=== PATIENT | female | born 1960 | race African-American/Black ===

== ENCOUNTER 2016-03-21 18:56 | Observation (INO) | payer OTHER ==
[2016-03-21] MEDS ORDERED: ASPIRIN PO STA (19:12)
--- NOTE | 2016-03-21 19:20 | ED EKG INTERP ---
EKG Interpretation - EKG Time of EKG reading by physician:: 19:04 EKG Read and Signed by:: Rohit aGrcia EKG Interpretation (*Must complete 3 of following elements*): Normal Rate: 67 Rhythm: Normal sinus rhythm Attestation - Scribe Verification/Attestation Scribe:: Zach Dumont Acting as Scribe for:: Rohit Garcia Scribe documention review:: This chart was documented by a scribe and accurately reflects the service the provider performed and the decisions made by the provider.
[2016-03-21 19:30] LABS: MANUAL DIFF NEEDED? NO
[2016-03-21 19:33] LABS: BASO% 0.2 % (0.0-0.8); EOS# 0.39 X1000 (0.0-0.7); HEMOGLOBIN 11.5 g/dL (12.0-16.0); IMM GRAN# 0.04 X1000 (0.0-0.04); IMM GRAN% 0.3 % (0.0-0.5); LYMPH# 1.88 X1000 (1.2-3.4); LYMPH% 14.4 % (20.5-51.1); MCH 30.3 PG (27-31); MCHC 31.9 g/dL (33-37); MONO# 0.83 X1000 (0.11-0.59); MONO% 6.4 % (1.7-9.3); MPV 11.4 FL (7.4-10.4); NEUT% 75.7 % (42.2-75.2); PLT 335 X1000 (130-400); RBC 3.79 XMIL (4.2-5.4)
[2016-03-21 19:43] LABS: INR 1.03; PROTIME 10.9 Seconds (9.2-11.7); PTT 25.4 Seconds (22.0-36.0)
[2016-03-21 20:16] LABS: ALBUMIN 3.8 g/dL (3.5-5.0); CALCIUM 9.1 mg/dL (8.8-10.2); MAGNESIUM 2.2 mg/dL (1.5-2.7); POTASSIUM 4.4 mmol/L (3.5-5.1); TOTAL BILIRUBIN 0.46 mg/dL (0.20-1.00); TOTAL PROTEIN 7.4 g/dL (6.3-8.3)
[2016-03-21 20:36] LABS: CK INDEX 1.1 (0.0-2.5); CK-MB 2.01 ng/mL (0.0-5.0)
[2016-03-21] MEDS ORDERED: LOVENOX SUBQ ONE (20:56)
--- NOTE | 2016-03-21 21:04 | PROVIDER DOCUMENTATION ---
HPI-Chest Pain - General Source: patient - History of Present Illness-CP Location: reports: substernal Chest Pain Radiation: reports: no radiation Quality of Pain: reports: sharp, stabbing Severity in ED: mild Onset/Duration: 24 hours ago Timing: still present Modifying Factors: worse with: breathing, coughing, palpation Associated Symptoms: reports: shortness of breath - General Chief Complaint: Chest Pain Stated Complaint: CP Time Seen by Provider: 03/21/16 19:12 Allergies/Adverse Reactions: Patient Allergies Allergy/AdvReac Type Severity Reaction Status Date / Time No Known Allergies Allergy Verified 03/21/16 19:35 Home Medications: ATORVAstatin [Lipitor] 40 mg PO DAILY 03/26/12 Ezetimibe [Zetia] 10 mg PO DAILY 03/26/12 Insulin Glargine [Lantus] 35 unit SUBQ QPM 08/21/12 Fluticasone/Salmeterol [Advair 250-50 Diskus] 1 each IH PRN PRN 06/27/13 Calcitriol 0.5 mcg PO DAILY 03/11/15 Nebivolol HCl [Bystolic] 10 mg PO DAILY 03/11/15 Amlodipine Besylate 10 mg PO DAILY 11/30/15 Aspirin EC 81 mg PO DAILY 11/30/15 B Complex W-C No.20/Folic Acid [Triphrocaps Softgel] 1 mg PO DAILY 11/30/15 Calcium Acetate 667 mg PO TID 11/30/15 Clonidine [Catapres] 0.1 mg PO TID 11/30/15 Insulin Aspart [Novolog Flexpen] 12 unit SQ TID 11/30/15 - History of Present Illness-CP Nature of Presenting Problem: Pt is a 56 yof who presents to ER with CC of pleuritic chest pain that started yesterday. Pt reports substernal sharp, stabbing chest pain that is worsened by breathing and palpation. Pt reports having an increased sob on exertion. ( Zach Dumont) Review of Systems - Adult - REVIEW OF SYSTEMS - ADULT Constitutional: denies: chills, fever, fatique Eyes: reports: no symptoms reported Ears, Nose, Mouth & Throat: reports: no symptoms reported Cardiovascular: reports: chest pain. denies: edema, irregular heart rate, orthopnea, palpitations, poor circulation, syncope Respiratory: reports: dyspnea on exertion, shortness of breath. denies: chronic cough, cough, excessive sputum production, hemoptysis, pleurisy, wheezing Gastrointestinal: reports: no symptoms reported Genitourinary: reports: no symptoms reported Musculoskeletal: reports: no symptoms reported Integumentary: reports: no symptoms reported Neurological: reports: no symptoms reported Psychiatric: reports: no symptoms reported Endocrine: reports: no symptoms reported Hematologic/Lymphatic: reports: no symptoms reported Allergic/Immunologic: reports: no symptoms reported All Other Systems: Reviewed and Negative Past History - Adult - PAST MEDICAL HISTORY-ADULT Review of Records: reports: Nursing Assessment Review, Medications Reviewed Cardiovascular: reports: HTN, hyperlipidemia Respiratory: reports: asthma Endocrine/Immune: reports: Diabetes - PRIOR SURGERIES/PROCEDURES Surgical/Procedure History: reports: other (breast reduction) - IMMUNIZATION STATUS Childhood Immunizations: NUTD, See Nurse Assessment Flu Vaccine: See Nurse Assessment Physical Exam-General - PHYSICAL EXAM-ADULT Initial Vital Signs Reviewed: Yes - CONSTITUTIONAL General Appearance: appears well, alert, no apparent distress - EYES Eyes: PERRL/EOMI, pink conjunctivae, fundi clear, no AV nicking - HEAD, EARS, NOSE, MOUTH & THROAT HENMT: normocephalic/atraumatic, moist mucous membranes - NECK Neck: non-tender, full range of motion, supple - RESPIRATORY Respiratory: chest non-tender, lungs clear, normal breath sounds - CARDIOVASCULAR Cardiovascular: normal peripheral pulses, regular rate, rhythm - GASTROINTESTINAL (ABDOMEN) Abdominal Exam: normal bowel sounds, non tender, soft - LYMPHATIC Lymphatic: no adenopathy - MUSCULOSKELETAL Back Exam: no CVA tenderness, no vertebral tenderness Extremity: normal range of motion, non-tender, normal gait - SKIN Integumentary: normal color, normal turgor, warm/dry - NEUROLOGIC Neurologic: grossly normal, no motor/sensory deficits - PSYCHIATRIC Psych/Mental Status: normal mood/affect, normal thought content, normal thought process, oriented x 3 Progress - CONSULTS/PCP/HOSPITALIST Notification #1 *Consult/PCP/Hospitalist*: Dr. Dunn Time Discussed: 21:00 Consult Disposition: Admit - PLAN OF CARE/RESULTS Progress/Plan/Lab Results: Vital Signs - 24 hr 03/21/16 18:58 Temperature 98.1 F Pulse Rate 69 Respiratory 18 Rate Blood Pressure 155/66 O2 Sat by Pulse 100 Oximetry Orders Category Date Time Status Cardiac Monitoring DIRECTED Care 03/21/16 19:12 Active Saline Loc NOW Care 03/21/16 19:12 Active CHEST-PORTABLE [RAD] Stat Exams 03/21/16 20:13 Taken LUNG SCAN / VQ [NM] Stat Exams 03/21/16 20:57 Ordered CBC WITH ELECTRONIC DIFF [HEME] Stat Lab 03/21/16 19:20 Completed CK PROFILE [SP CHEM] Stat Lab 03/21/16 19:20 Completed COMPREHENSIVE METABOLIC PANEL [CHEM] Stat Lab 03/21/16 19:20 Completed D-DIMER [CHEM] Stat Lab 03/21/16 19:20 Completed MAGNESIUM [CHEM] Stat Lab 03/21/16 19:20 Completed PRO B-NATRIURETIC PEPTIDE Stat Lab 03/21/16 19:20 Completed PROTIME WITH INR [COAG] Stat Lab 03/21/16 19:20 Completed PTT [COAG] Stat Lab 03/21/16 19:20 Completed TROPONIN T Stat Lab 03/21/16 19:20 Completed URINALYSIS W/POSS RFLX CULT [URINALYSIS] Stat Lab 03/21/16 20:23 Uncollected Aspirin Med 03/21/16 19:12 Discontinued 325 mg PO STAT STA Enoxaparin [Lovenox] Med 03/21/16 20:56 Discontinued 90 mg SUBQ NOW ONE EKG [EKG] Stat Ther 03/21/16 19:01 Ordered Laboratory Tests 03/21/16 03/21/16 03/21/16 19:20 19:20 19:20 WBC 13.05 H RBC 3.79 L Hgb 11.5 L Hct 36.0 L MCV 95.0 MCH 30.3 MCHC 31.9 L RDW Std Deviation 15.3 H Plt Count 335 MPV 11.4 H Immature Gran % (Auto) 0.3 Neut % (Auto) 75.7 H Lymph % (Auto) 14.4 L [place] % (Auto) 6.4 Eos % (Auto) 3.0 Baso % (Auto) 0.2 Immature Gran # (Auto) 0.04 Neut # (Auto) 9.88 H Lymph # (Auto) 1.88 [place] # (Auto) 0.83 H Eos # (Auto) 0.39 Baso # (Auto) 0.03 PT INR PTT (Actin FS) D-Dimer 1.37 H Sodium 142 Potassium 4.4 Chloride 102 Carbon Dioxide 25 Anion Gap 15 BUN 58 H Creatinine 5.3 H Estimated GFR/1.73 m2 10 BUN/Creatinine Ratio 11 Glucose 186 H Calculated Osmolality 304 Calcium 9.1 Magnesium 2.2 Total Bilirubin 0.46 AST 16 ALT 19 Alkaline Phosphatase 80 Creatine Kinase 189 H Creatine Kinase Index 1.1 CK-MB (CK-2) 2.01 Troponin T Esr-L-Vwhkgmdfglj Pept Total Protein 7.4 Albumin 3.8 Globulin 3.6 Albumin/Globulin Ratio 1.1 03/21/16 03/21/16 03/21/16 19:20 19:20 19:20 WBC RBC Hgb Hct MCV MCH MCHC RDW Std Deviation Plt Count MPV Immature Gran % (Auto) Neut % (Auto) Lymph % (Auto) [place] % (Auto) Eos % (Auto) Baso % (Auto) Immature Gran # (Auto) Neut # (Auto) Lymph # (Auto) [place] # (Auto) Eos # (Auto) Baso # (Auto) PT 10.9 INR 1.03 PTT (Actin FS) 25.4 D-Dimer Sodium Potassium Chloride Carbon Dioxide Anion Gap BUN Creatinine Estimated GFR/1.73 m2 BUN/Creatinine Ratio Glucose Calculated Osmolality Calcium Magnesium Total Bilirubin AST ALT Alkaline Phosphatase Creatine Kinase Creatine Kinase Index CK-MB (CK-2) Troponin T 0.036 Kah-E-Kybecmdouej Pept 762 H Total Protein Albumin Globulin Albumin/Globulin Ratio (Zach Dumont) Departure - Departure Time of Disposition Order: 21:03 Certified Medical Emergency: Emergent - Departure DIAGNOSIS: Elevated d-dimer Chest pain Qualifiers: Chest pain type: unspecified Qualified Code(s): R07.9 - Chest pain, unspecified Urinary tract infection Qualifiers: Urinary tract infection type: site unspecified Hematuria presence: with hematuria Qualified Code(s): N39.0 - Urinary tract infection, site not specified ; R31.9 - Hematuria, unspecified Disposition: ADMITTED INPATIENT 09 Condition: Stable Attestation - Scribe Verification/Attestation Scribe:: Zach Dumont Acting as Scribe for:: Rohit Garcia Scribe documention review:: This chart was documented by a scribe and accurately reflects the service the provider performed and the decisions made by the provider. Physician Attestation
[2016-03-21 21:28] LABS: URINE MICRO REVIEW NEEDED? NO; URINE SOURCE CLEAN CATCH
[2016-03-21 21:49] LABS: BILIRUBIN URINE NEGATIVE (NEGATIVE); BLOOD URINE SMALL (NEGATIVE); COLOR YELLOW; GLUCOSE URINE 300 mg/dL (NEGATIVE); LEUKOCYTES URINE MODERATE (NEGATIVE); NITRITE URINE NEGATIVE (NEGATIVE); PROTEIN URINE 300 mg/dL (NEGATIVE); TURBIDITY URINE HAZY (CLEAR); UROBILINOGEN URINE NORMAL (NORMAL)
[2016-03-21 21:50] LABS: UR EPITHELIAL CELLS >10 /HPF (<10); URINE BACTERIA 4+ /HPF; URINE CULTURE NEEDED? YES; URINE RBC <10 /HPF (<10); URINE WBC TNTC /HPF (<10)
[2016-03-21] MEDS ORDERED: NITROGLYCERIN TOP ONE (21:51)
[2016-03-21] MEDS ORDERED: LASIX IV ONE (22:29)
[2016-03-21] MEDS ORDERED: APRESOLINE IV PRN (22:30)
[2016-03-21] MEDS ORDERED: ADVAIR 250/50 DISKUS INH PRN (22:49)
[2016-03-21] MEDS ORDERED: ZOFRAN IV PRN ×2 (22:49)
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
[2016-03-22] MEDS ORDERED: ROCEPHIN 1 GM/NS 50 ML IV ONE (00:26)
[2016-03-22] MEDS: NITROGLYCERIN TOP SCH ×4 (02:35→17:35)
--- NOTE | 2016-03-22 05:37 | EKG Report ---
Test Performed on : 03/21/2016 7:04:18 PM Test Reason : CP Blood Pressure : / mmHG Vent. Rate : 067 BPM Atrial Rate : 067 BPM P-R Int : 130 ms QRS Dur : 074 ms QT Int : 424 ms P-R-T Axes : 068 025 048 degrees QTc Int : 448 ms Normal sinus rhythm. Normal ECG When compared with ECG of 27-JUN-2013 11:19, No significant change was found Unconfirmed Result
[2016-03-22 05:48] LABS: MANUAL DIFF NEEDED? NO
[2016-03-22 05:57] LABS: BASO% 0.2 % (0.0-0.8); EOS# 0.39 X1000 (0.0-0.7); EOS% 3.2 % (0.0-10.0); HEMATOCRIT 34.4 % (37.0-47.0); HEMOGLOBIN 10.9 g/dL (12.0-16.0); LYMPH# 2.01 X1000 (1.2-3.4); LYMPH% 16.3 % (20.5-51.1); MCH 30.5 PG (27-31); MCHC 31.7 g/dL (33-37); MCV 96.4 FL (81-99); MONO# 0.92 X1000 (0.11-0.59); MONO% 7.5 % (1.7-9.3); MPV 11.7 FL (7.4-10.4); NEUT% 72.8 % (42.2-75.2); PLT 336 X1000 (130-400); RBC 3.57 XMIL (4.2-5.4)
[2016-03-22] MEDS: HUMALOG SUBQ SCH ×7 (06:31→22:20)
[2016-03-22] MEDS: PRILOSEC PO SCH (06:31)
[2016-03-22] MEDS ORDERED: HEPARIN IV PRN (06:46)
[2016-03-22] MEDS ORDERED: TIGHT: 0.2 ML/HR MISC PRN (06:46)
[2016-03-22] MEDS ORDERED: NS 2,000 ML MISC PRN (06:46)
[2016-03-22 06:55] LABS: CALCIUM 9.4 mg/dL (8.8-10.2); POTASSIUM 4.7 mmol/L (3.5-5.1)
--- NOTE | 2016-03-22 08:15 | Diag Imaging Result Document ---
PROCEDURE NAME: CHEST-PORTABLE - 03/21/2016 AP PORTABLE CHEST: TIME: 2021. FINDINGS: Normal chest.
--- NOTE | 2016-03-22 08:32 | Diag Imaging Result Document ---
PROCEDURE NAME: LUNG SCAN / VQ - 03/21/2016 VENTILATION-PERFUSION LUNG SCAN: FINDINGS: The patient was administered 35.8 mCi of technetium 99m DTPA aerosol for the ventilation portion of the study and 6.1 mCi of technetium 99m MAA for the perfusion portion. There is no evidence of ventilation-perfusion mismatch and no absolute perfusion defects are demonstrated. IMPRESSION: Normal study.
[2016-03-22] MEDS: NEPHROCAPS PO SCH (08:53)
[2016-03-22] MEDS: ROCALTROL PO SCH (08:53)
[2016-03-22] MEDS: NORVASC PO SCH (08:54)
[2016-03-22] MEDS: ASPIRIN EC PO SCH (08:54)
[2016-03-22] MEDS: CATAPRES PO SCH ×3 (08:54→22:22)
[2016-03-22] MEDS: BYSTOLIC PO SCH (08:55)
[2016-03-22] MEDS: PHOSLO PO SCH ×3 (08:55→17:09)
[2016-03-22] MEDS: LIPITOR PO SCH (08:56)
[2016-03-22] MEDS: ZETIA PO SCH (10:02)
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
--- NOTE | 2016-03-22 15:44 | PROGRESS NOTE ---
DATE: 03/22/2016 SUBJECTIVE: Patient reports not feeling any more chest pain. Denies any shortness of breath or fever or chills. OBJECTIVE: Vital Signs: Temperature 98.2 degrees, heart rate 57 respiratory rate 18, blood pressure 140/62, O2 saturation 100% on room air. General Examination: This is a 56-year-old female lying in bed, in no acute distress. HEENT: Head is normocephalic, atraumatic. Anicteric sclerae and pale conjunctivae. Mucous membranes moist. Neck: Supple. No JVD noted. No carotid bruits. No lymphadenopathy. No thyromegaly. Cardiovascular: S1, S2 heard. No murmurs, gallops, or rubs. Regular rate and rhythm. Respiratory: A few bibasilar crepitations. No work of breathing or using accessory muscles. Abdomen: Soft. Nontender to palpation. Bowel sounds present. No organomegaly. Extremities: There is 1+ nonpitting edema in both lower extremities. Left upper arm fistula noted with positive bruit and thrill. Neurological: Patient is alert and oriented x3. Able to move 4 extremities. Cranial nerves grossly normal. LABORATORY DATA: White cell count 12.32, hemoglobin 10.9, hematocrit 34.4, platelets 236,000. BMP unremarkable. BUN 60, creatinine 5.2, and glucose 211. ASSESSMENT AND PLAN: 1. Chest pain. Definitely with a history of end-stage renal disease and risk factors like diabetes and hypertension, we have admitted this patient to the hospital for rule out any acute coronary syndrome. So far 2 sets of troponins have been negative. We have consulted cardiology. Will see what they have to say. 2. End-stage renal disease on hemodialysis. Dr. Tillman from nephrology has been consulted and they will take care of this problem. 3. Hypertension. Not well controlled with those medications on admission. Today the blood pressure is 130-140 systolic blood pressure. We will continue with the same management. 4. Diabetes mellitus type 2. We will continue with sliding scale insulin. 5. Hyperlipidemia. We will continue with home medications.
--- NOTE | 2016-03-22 16:13 | ECHO REPORT ---
ORDER DATE: 03/22/2016 ECHOCARDIOGRAPHIC MEASUREMENTS: 1. Interventricular septum 1.0, left ventricular posterior wall 1.0, diameter 4.6, left atrium 4.2, aorta 2.9. 2. Normal left ventricular cavity size. Estimated ejection fraction of 55-60%. Aortic valve leaflets are trileaflet. Pulmonic valve was normal. 3. Peak velocity across the aortic valve less than 2 m/sec. There is no aortic stenosis or regurgitation. There is mild mitral regurgitation. Trace tricuspid regurgitation. Peak velocity across the tricuspid valve less than 2 m/sec. 4. There is no pericardial effusion or obvious intracardiac mass or thrombus seen.
[2016-03-22] MEDS ORDERED: LANTUS SUBQ SCH (21:00)
[2016-03-22] MEDS: TYLENOL PO PRN (22:17)
[2016-03-23] MEDS: NITROGLYCERIN TOP SCH ×4 (05:33→12:00)
[2016-03-23] MEDS: PRILOSEC PO SCH (06:18)
[2016-03-23] MEDS: TYLENOL PO PRN ×2 (06:18→11:23)
[2016-03-23] MEDS: HUMALOG SUBQ SCH ×4 (06:18→13:16)
[2016-03-23] MEDS: NORVASC PO SCH (09:05)
[2016-03-23] MEDS: BYSTOLIC PO SCH (09:07)
[2016-03-23] MEDS: ROCALTROL PO SCH (09:07)
[2016-03-23] MEDS: ASPIRIN EC PO SCH (09:08)
[2016-03-23] MEDS: ZETIA PO SCH (09:08)
[2016-03-23] MEDS: CATAPRES PO SCH ×2 (09:08→14:59)
[2016-03-23] MEDS: PHOSLO PO SCH ×2 (09:08→12:00)
[2016-03-23] MEDS: LIPITOR PO SCH (09:08)
[2016-03-23] MEDS: NEPHROCAPS PO SCH (09:08)
--- NOTE | 2016-03-23 09:50 | PROGRESS NOTE ---
DATE: 03/23/2016 SUBJECTIVE: Ms. Grimm is currently resting on the side of the bed. She appears in no acute distress. PHYSICAL EXAMINATION: Skin: Is warm and dry HEENT: Normocephalic, atraumatic. Conjunctivae are pale. She has JACQUE. Mucous membranes moist. Neck: Supple. Trachea midline. No JVD. Cardiovascular: Regular rate and rhythm. She has a positive S4. Lungs: Clear on room air. Equal excursion. Abdomen: Is soft, nontender. Positive bowel sounds. Extremities: AV fistula to the left forearm, positive thrill. Dressing is dry and intact. No edema to the lower extremities. No clubbing or cyanosis. Neurological: Alert and oriented x3. Integumentary: No rashes or lesions evident. Vital Signs: Temperature 98.4 degrees, blood pressure 150/56, heart rate 59, respirations 16. She is on room air. Last recorded saturation 98%. She has had 840 in. She has had 2200 out per dialysis yesterday with no void. LABS: This a.m., sodium 143, potassium 4.7, chloride is 104, CO2 21, BUN 60, creatinine 5.2, glucose 211. These were completed yesterday with no labs this a.m. We will plan for labs in the a.m. prior to dialysis. ASSESSMENT AND PLAN: 1. End-stage renal disease. Patient is due for routine dialysis in the morning if she remains in the hospital. Otherwise, she is to go to her outpatient dialysis treatment as prescribed. 2. Electrolytes and acid-base balance. These have been stable. 3. Anemia. This was stable. 4. Leukocytosis. Patient is on Rocephin. 5. Urinary tract infection. Urine culture is certainly indicating gram negative rods. No sensitivity at this time. We will defer any further treatment to the primary care team. I would like to thank you for allowing us to follow with this patient. Seen, data reviewed, discussed with Marlena Bolden on 03/23/15. I agree with the above assessment and plan of care. rg Dictated by MONICA Monzon for Kevyn Tillman MD [facility]
[2016-03-23 14:41] VITALS: BP 142/60
--- NOTE | 2016-03-23 21:45 | DISCHARGE SUMMARY ---
ADMISSION DATE: 03/21/2016 DISCHARGE DATE: 03/23/2016 CONSULTATIONS: 1. Hugh Alford M.D. with Cardiology. 2. Kevyn Tillman M.D. with Nephrology. PERTINENT PROCEDURES: 1. V/Q scan was a normal study. 2. Echocardiogram showed an estimated EF of 55-60%. DISCHARGE DIAGNOSES: 1. End-stage renal disease, on hemodialysis. 2. Anemia of chronic disease, stable. 3. Hypertension, chronic. 4. Diabetes mellitus type 2. 5. Hyperlipidemia. Continue Zocor. 6. Chest pain rule out myocardial infarction, resolved. 7. Urinary tract infection, ruled out asymptomatic bacteriuria. Patient was on IV antibiotics while in the hospital. HOSPITAL COURSE: Briefly, Ms. Grimm is a 56-year-old, female, who presents to the emergency room with complaint of chest pain that started the day before her admission. She states it was substernal stabbing pain that worsened with breathing. She did feel as if she were having palpitations that did not radiate to her neck, back or jaw. She said the severity was around 8-9/10 and that is when she decided to come to the emergency room. It was made worse by breathing. Nothing relieved the pain. She also sleeps on 3 pillows at home. The patient is unable to lay flat. The patient does carry a past medical history that includes end-stage renal disease with hemodialysis Tuesday, Tuesday, Tuesday; hypertension; diabetes mellitus and hyperlipidemia. Chest x-ray showed increased pulmonary vascular congestion. Laboratory data did show mildly elevated white count, D-dimer of 1.37. Patient denied any calf pain or any extended periods of sitting. She did receive 1 mg/kg Lovenox in the emergency room. V/Q-scan did not show any pulmonary embolism. She was admitted to [facility] with a Cardiology consult and Nephrology consult. Patient's echocardiogram showed an EF between 55 and 60%. A follow-up EKG did not show any significant changes per Cardiology. They did not suggest any further testing. Nephrology also saw the patient. They started her on her regular scheduled dialysis. Her electrolytes, acid base and anemia have remained stable. The patient did undergo dialysis again today. Dr. Patterson felt that her UTI was asymptomatic bacteriuria. The patient will not be going home on any p.o. antibiotics. She will continue with her regular scheduled outpatient dialysis treatment as prescribed. VITAL SIGNS AT TIME OF DISCHARGE: Temperature 97.4 degrees, heart rate 59, respirations 18, blood pressure 148/58, O2 is 99% on room air. DISCHARGE DIET: Diabetic. DISCHARGE MEDICATIONS: 1. Lipitor 40 mg p.o. daily. 2. Zetia 5 mg p.o. daily. 3. Lantus 35 units subcutaneous q.p.m. 4. Advair inhaler 1 inhaled p.r.n. 5. Calcitriol 0.5 mcg p.o. daily. 6. Bystolic 10 mg p.o. daily. 7. Amlodipine 10 mg p.o. daily. 8. Aspirin 81 mg p.o. daily. 9. Calcium acetate 667 mg p.o. t.i.d. 10. Catapres 0.1 mg p.o. t.i.d. 11. Vitamin B complex with folic acid 1 mg p.o. daily. 12. NovoLog FlexPen 12 units subcutaneously t.i.d. 13. Prilosec 20 mg p.o. daily. FOLLOWUP: The patient is being discharged home. She will continue her regular scheduled dialysis as prescribed. Patient can return to the ED for any worsening of symptoms. DISCHARGE TIME: 30 minutes. Dictated by MONICA Vargas for Maverick Patterson MD
== END 2016-03-23 16:27 | disposition home or self-care (01) ==
LOC: ED 18:56 → EDIPHOLD 22:25 → 4N 03-22 01:19
PROVIDERS: ATTEND Internal Medicine
DX: R07.89 Other chest pain (principal); N18.6 End stage renal disease; D63.0 Anemia in neoplastic disease; E11.22 Type 2 diabetes mellitus with diabetic chronic kidney disease; I12.0 Hypertensive chronic kidney disease with stage 5 chronic kidney disease or end stage renal disease; N39.0 Urinary tract infection, site not specified; E78.5 Hyperlipidemia, unspecified; B96.20 Unspecified Escherichia coli [E. coli] as the cause of diseases classified elsewhere; R31.9 Hematuria, unspecified; D72.829 Elevated white blood cell count, unspecified; Z99.2 Dependence on renal dialysis; R79.1 Abnormal coagulation profile; R60.0 Localized edema; J45.909 Unspecified asthma, uncomplicated; R06.02 Shortness of breath; Z79.899 Other long term (current) drug therapy; Z79.51 Long term (current) use of inhaled steroids; Z79.4 Long term (current) use of insulin; Z79.82 Long term (current) use of aspirin; Z87.891 Personal history of nicotine dependence; Z82.49 Family history of ischemic heart disease and other diseases of the circulatory system; Z83.3 Family history of diabetes mellitus
CPT/HCPCS: 36415; 71010; 78582; 80048; 80053; 80061; 81001; 82550; 82553; 82948; 83036; 83721; 83735; 83880; 84484; 85025; 85379; 85610; 85651; 85730; 86140; 87077; 87088; 87186; 93005; 93306; 96372; 96374; A9539; A9540; J0360; J0696; J1650; J1815; J7030